=== PATIENT | male | born 1985 | race Two or more races ===

== ENCOUNTER 2020-12-29 17:22 | Emergency (ER) | payer MEDICAID ==
[~2020-12-29] VITALS: Ht 180.3 cm; Wt 100.0 kg
[2020-12-29] MEDS ORDERED: SODIUM CHLORIDE 0.9% 1,000 ML IV ONE (18:00)
[2020-12-29 18:14] LABS: BASOPHILS % 0.3 % (0.0-2.0); EOSINOPHILS % 1.1 % (0.0-5.0); HEMATOCRIT. 37.8 % (42.0-52.0); HEMOGLOBIN. 12.5 g/dL (14.0-18.0); LYMPHOCYTES % 26.3 % (20.0-50.0); MEAN CORPUSCULAR HEMOGLOBIN 25.3 pg (28.0-32.0); MEAN CORPUSCULAR VOLUME 76.5 fL (80.0-94.0); MONOCYTES % 8.8 % (2.0-8.0); NEUTROPHILS % 63.5 % (40.0-76.0); PLATELET 501 x1000/uL (130-400); RED BLOOD CELL COUNT 4.94 mill/uL (4.7-6.1); RED CELL DISTRIBUTION WIDTH 22.4 % (11.6-14.6)
[2020-12-29 18:16] LABS: CHLORIDE 106 mEq/L (98-107)
[2020-12-29 18:20] LABS: CLARITY URINE CLEAR (CLEAR); COLOR URINE DARK YELLOW (YELLOW); KETONES URINE TRACE (NEGATIVE); LEUKOCYTE ESTERASE URINE NEGATIVE (NEGATIVE); NITRITE URINE NEGATIVE (NEGATIVE); OCCULT BLOOD URINE NEGATIVE (NEGATIVE); PH URINE 6.5 (4.5-8.0); PROTEIN URINE 1+ (NEGATIVE); SPECIFIC GRAVITY URINE 1.034 (1.005-1.030)
[2020-12-29 18:20] LABS: ETHANOL BLOOD < 10 mg/dL
[2020-12-29 18:33] LABS: *AMPHETAMINES SCREEN URINE PRESUMTIVE POSITIVE (NEGATIVE); *BARBITURATES SCREEN URINE NEGATIVE (NEGATIVE); *BENZODIAZEPINES SCREEN URINE NEGATIVE (NEGATIVE); *COCAINE SCREEN URINE NEGATIVE (NEGATIVE); METHADONE URINE SCREEN NEGATIVE (NEGATIVE); OPIATES URINE SCREEN NEGATIVE (NEGATIVE); PHENCYCLIDINE URINE SCREEN NEGATIVE (NEGATIVE)
[2020-12-29 18:34] LABS: CANNABINOID URINE SCREEN NEGATIVE (NEGATIVE)
[2020-12-29] MEDS ORDERED: KCL 10MEQ/50ML PREMIX 50 ML IV NR (19:00)
[2020-12-29 19:28] LABS: PLATELET ESTIMATE INCREASED
[2020-12-29 23:51] VITALS: BP 138/92
== END 2020-12-30 00:32 | disposition home or self-care (01) ==
LOC: EDBD 17:22 → ER 17:22
DX: F15.180 Other stimulant abuse with stimulant-induced anxiety disorder (principal); F16.180 Hallucinogen abuse with hallucinogen-induced anxiety disorder; E87.6 Hypokalemia
CPT/HCPCS: 36415; 71045; 80053; 80305; 80320; 81003; 82140; 82962; 85025; 96360; 99285; J3480; J7030; Z7610; G0480

== ENCOUNTER 2021-05-06 11:02 | Emergency (ER) | payer MEDICAID ==
[~2021-05-06] VITALS: Ht 177.8 cm; Wt 89.0 kg
[2021-05-06] MEDS ORDERED: HYDROCODONE/ACETAMINOPHEN 5/325MG TABLET PO ONE (11:30)
[2021-05-06] MEDS ORDERED: ONDANSETRON 4MG ODT PO ONE (11:30)
[2021-05-06 12:47] VITALS: BP 137/99
[2021-05-06] MEDS ORDERED: HYDR-4001 MT (13:06)
[2021-05-06] MEDS ORDERED: IBUP-2030 MT (13:06)
== END 2021-05-06 13:14 | disposition home or self-care (01) ==
LOC: ER 11:17
DX: M79.671 Pain in right foot (principal); F15.10 Other stimulant abuse, uncomplicated
CPT/HCPCS: 29515; 73590; 73650; 99284; Q0162